=== PATIENT | male | born 1955 | race Caucasian/White ===

== ENCOUNTER 2020-06-10 15:43 | Observation (INO) | payer OTHER, MEDICARE ==
[~2020-06-10] VITALS: Ht 182.9 cm; Wt 90.4 kg
[2020-06-10 17:10] LABS: Calcium, Ionized (POC) 1.19 mmol/L (1.10-1.46); Chloride (POC) 106 mmol/L (98-108); Creatinine (POC) 3.3 mg/dL (0.8-1.3); Glucose (ISTAT POC) 104 mg/dL (70-99); Hemoglobin (POC) 11.2 g/dL (13.5-17.5); Potassium (POC) 4.2 mmol/L (3.5-5.5); Sodium (POC) 139 mmol/L (135-148); Total CO2 (POC) 23 mmol/L (21-32)
[2020-06-10 22:10] LABS: Source, Urine Clean Catch
[2020-06-10 22:13] LABS: Bilirubin, Urine Neg (Neg); Blood, Urine 3+ (Neg); Glucose Qualitative, Urine Neg (Neg); Ketones, Urine Neg (Neg); Leukocyte Esterase, Urine Neg (Neg); Nitrite, Urine Neg (Neg); Protein, Urine 1+ (Neg); Specific Gravity, Urine 1.015 (1.003-1.022); Urobilinogen, Urine NORM (Normal)
[2020-06-10] MEDS ORDERED: ZOCOR20 MG PO (22:21)
[2020-06-10] MEDS ORDERED: LOSA50 PO (22:21)
[2020-06-10] MEDS ORDERED: Elmiron100 MG PO (22:21)
[2020-06-10] MEDS ORDERED: ALFU10 PO (22:21)
[2020-06-10] MEDS ORDERED: MYRBETRIQ50 MG PO (22:22)
[2020-06-10] MEDS ORDERED: ELIQUIS5 MG PO (22:22)
[2020-06-10 22:23] LABS: Appearance, Urine Clear (Clear); Color, Urine Yellow (P-Yellow)
[2020-06-10] MEDS ORDERED: METO25 PO (22:23)
[2020-06-10 22:26] LABS: Bacteria Not Seen /hpf; Squamous Epithelial Cells Rare /hpf (Few); Uric Acid Crystals Mod /hpf; White Blood Cells, Urine Not Seen /hpf (0-5)
[2020-06-11 00:08] LABS: BASOPHILS ABSOLUTE AUTO 0.04 K/mm3 (0.00-0.23); BASOPHILS PERCENT AUTO 0 % (0-2); EOSINOPHILS ABSOLUTE AUTO 0.14 K/mm3 (0.00-0.68); EOSINOPHILS PERCENT AUTO 1 % (0-6); Hematocrit 32.1 % (37.0-53.0); Hemoglobin 10.9 g/dL (13.5-17.5); IMMATURE GRAN ABSOLUTE AUTO 0.09 K/mm3 (0.00-0.10); IMMATURE GRAN PERCENT AUTO 1 % (0-1); LYMPHOCYTES ABSOLUTE AUTO 1.77 K/mm3 (0.84-5.20); LYMPHOCYTES PERCENT AUTO 17 % (21-46); MONOCYTES ABSOLUTE AUTO 1.09 K/mm3 (0.16-1.47); MONOCYTES PERCENT AUTO 11 % (4-13); Mean Corpuscular Volume 88 fL (80-100); NEUTROPHILS PERCENT AUTO 70 % (41-73); Platelet Count 347 K/mm3 (150-400); RDW Coefficient Variation 12.2 % (11.7-14.2); Red Blood Cell Count 3.63 M/mm3 (4.30-5.90); White Blood Cell Count 10.43 K/mm3 (4.00-11.30)
[2020-06-11 00:25] LABS: Albumin, Blood 2.7 g/dL (3.4-5.0); Albumin/Globulin Ratio 0.8 (0.8-1.8); Bilirubin, Total 0.4 mg/dL (0.1-1.0); Bun/Creatinine Ratio 8.1 (12.0-20.0); Calcium, Blood 8.5 mg/dL (8.5-10.1); Creatinine, Blood 2.6 mg/dL (0.60-1.20); Globulin, Blood 3.6 g/dL (2.2-4.0); Potassium, Blood 3.9 mmol/L (3.5-5.5); Total Protein, Blood 6.3 g/dL (6.4-8.2)
[2020-06-11] MEDS ORDERED: Norco 10-325 T1 EACH PO (03:03)
[2020-06-11 03:14] LABS: Campylobacter Sp Not Detected (NOT DETECT); Cryptosporidium Not Detected (NOT DETECT); Cyclospora Cayetanensis Not Detected (NOT DETECT); E. Coli O157 Not Detected (NOT DETECT); Entamoeba Histolytica Not Detected (NOT DETECT); Enteroaggregative E. coli-EAEC Not Detected (NOT DETECT); Enteropathogenic E. coli-EPEC Not Detected (NOT DETECT); Enterotoxigenic E. coli-ETEC Not Detected (NOT DETECT); Giardia Lamblia Not Detected (NOT DETECT); Plesiomonas Shigelloides Not Detected (NOT DETECT); Salmonella Sp Not Detected (NOT DETECT); Shiga Toxin-prod E. coli-STEC Not Detected (NOT DETECT); Shigella/Enteroin E. coli-EIEC Not Detected (NOT DETECT); Vibrio Cholerae Not Detected (NOT DETECT); Vibrio Sp Not Detected (NOT DETECT); Yersinia Enterocolitica Not Detected (NOT DETECT)
[2020-06-11 03:15] LABS: Adenovirus F 40/41 Not Detected (NOT DETECT); Astrovirus Not Detected (NOT DETECT); Norovirus GI/GII Not Detected (NOT DETECT); Rotavirus A Not Detected (NOT DETECT); Sapovirus Not Detected (NOT DETECT)
[2020-06-11 06:01] LABS: Bun/Creatinine Ratio 8.1 (12.0-20.0); Calcium, Blood 8.6 mg/dL (8.5-10.1); Creatinine, Blood 2.46 mg/dL (0.60-1.20); Potassium, Blood 3.8 mmol/L (3.5-5.5)
--- NOTE | 2020-06-11 06:16 | NUR ---
SHIFT SUMMARY: AOX3, ADMITTED FOR FREQUENT DIARRHEA OF 3-4 TIMES A DAY FOR SEVERAL WEEKS NOW. WEAKNESS. INDEPENDANT IN THE ROOM. NO LIGHTHEADNESS. NO NAUSEA BUT DOES HAVE TENDERNESS IN ABDOMIN. POOR APPETITE. 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 GI PANEL ORDERED BUT CAME BACK NEGATIVE. IVF INFUSING TO INCREASE KIDNEY FUNCTIONS. OTHER THEN DIARREHA AND POOR APPEITITE HE IS DOING WELL. WILL CONTINUE TO MONITOR TILL DAYSHIFT ARRIVES.
--- NOTE | 2020-06-11 10:23 | NUR ---
ATTENDING PATHOLOGIST NOTIFIED THIS RN OF THE PATIENT'S RATE AND RHYTHM OF ST WITH PAC'S AT 160 BPM. WHILE ON VOCERA WITH THE ATTENDING PATHOLOGIST SHE SAID THE PATIENT CONVERTED TO SR AT [address] COLE NOTIFIED OF THIS AND HE STATED HE WANTS TO SEE THE RESULTS OF THE BARIUM SWALLOW BEFORE HE MAKES ANY ORDERS.
--- NOTE | 2020-06-11 16:49 | NUR ---
PATIENT IS ALERT AND ORIENTED AND COOPERATIVE WITH CARE. HE STATES HE HAS HAD [address] COLE STARTED THE PATIENT ON CELIAC DIET (GLUTEN FREE) AND CREON TIDM. NS IS RUNNING AT 150/HR. PATIENT IS INDEPENDENT IN HIS ROOM. HE IS . WILL CONTINUE TO MONITOR
[2020-06-12 05:01] LABS: BASOPHILS ABSOLUTE AUTO 0.02 K/mm3 (0.00-0.23); BASOPHILS PERCENT AUTO 0 % (0-2); EOSINOPHILS ABSOLUTE AUTO 0.12 K/mm3 (0.00-0.68); EOSINOPHILS PERCENT AUTO 1 % (0-6); Hematocrit 30.8 % (37.0-53.0); Hemoglobin 10.4 g/dL (13.5-17.5); IMMATURE GRAN ABSOLUTE AUTO 0.05 K/mm3 (0.00-0.10); IMMATURE GRAN PERCENT AUTO 1 % (0-1); LYMPHOCYTES ABSOLUTE AUTO 1.79 K/mm3 (0.84-5.20); LYMPHOCYTES PERCENT AUTO 18 % (21-46); MONOCYTES ABSOLUTE AUTO 1.14 K/mm3 (0.16-1.47); MONOCYTES PERCENT AUTO 12 % (4-13); Mean Corpuscular HGB 29.9 pg (26.0-34.0); Mean Corpuscular HGB Conc 33.8 g/dL (31.5-36.5); Mean Corpuscular Volume 89 fL (80-100); Mean Platelet Volume 9.3 fL (9.1-12.4); NEUTROPHILS ABSOLUTE AUTO 6.61 K/mm3 (1.96-9.15); NEUTROPHILS PERCENT AUTO 68 % (41-73); Platelet Count 327 K/mm3 (150-400); RDW Coefficient Variation 12.6 % (11.7-14.2); RDW Standard Deviation 41.1 fL (35.1-46.3); Red Blood Cell Count 3.48 M/mm3 (4.30-5.90); White Blood Cell Count 9.73 K/mm3 (4.00-11.30)
[2020-06-12 05:23] LABS: Bun/Creatinine Ratio 8.5 (12.0-20.0); Calcium, Blood 8.2 mg/dL (8.5-10.1); Creatinine, Blood 1.65 mg/dL (0.60-1.20); Potassium, Blood 3.8 mmol/L (3.5-5.5)
--- NOTE | 2020-06-12 05:26 | NUR ---
SHIFT SUMMARY S/P DAMIAN, A/O X4, VSS, TOLERATING PO, MULTIPLE LOOSE BM'S TODAY, VOIDING SMALL AMOUNTS EACH TIME, DENIES PAIN T/O SHIFT, INDEPENDENT IN ROOM. REPORTS METOPROLOL ORDERED IS MORE THAN HIS HOME ORDER, WILL DISCUSS W/ DAY RN TO BE ADDRESSED BY PROVIDER. NO ACUTE EVENTS THIS SHIFT. CALL LIGHT IN REACH, WILL CONTINUE TO MONITOR AND REPORT TO ONCOMING DAY RN.
--- NOTE | 2020-06-12 12:23 | NUR ---
Patient is sitting up in bed and alert. 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 He also shares about his family. I provide therapeutic listening and companionship. Patient responds well and shows signs of an elevated mood.
--- NOTE | 2020-06-12 17:36 | NUR ---
SHIFT SUMMARY PT RESTING QUIETLY AT START OF SHIFT. SL AT THAT TIME. PT UP TO BTHRM INDEPENDENTLY WITH LOOSE STOOLS. PER REPORT, PT STARTED ON CELIAC, GLUTEN FREE DIET. DR COLE IN TO SEE PT THIS AM, DICUSSING PLAN OF CARE. MEDICATIONS ADJUSTED. PT HOPING TO GO HOME TODAY. PT TO STAY ONE MORE DAY. CREON INCREASED; SEE EMAR. TO RE-EVALUATE PT TOMORROW AND D/C TO HOME. IVF'S RESTARTED TODAY X1 LITER ONLY; THEN SL. PT IS A&O, PLEASANT AND CO-OP WITH CARE. CALL LT IN REACH.
[2020-06-13 06:06] LABS: Bun/Creatinine Ratio 6.3 (12.0-20.0); Calcium, Blood 8.3 mg/dL (8.5-10.1); Creatinine, Blood 1.42 mg/dL (0.60-1.20); Potassium, Blood 3.9 mmol/L (3.5-5.5)
--- NOTE | 2020-06-13 06:39 | NUR ---
HOPING TO GO HOME TODAY. NO CHANGES FROM PREVIOUS SHIFT. ALONSO JUST THINKS HE CAN RECOVER WELL AT HOME. MINIMAL TOLERABLE PAIN/NAUSEA OVERNIGHT. STILL HAVING LOOSE STOOLS
[2020-06-13] MEDS ORDERED: Acetaminophen325 M1 PO (11:00)
[2020-06-13] MEDS ORDERED: CREON DR 24,001 EACH PO (11:01)
--- NOTE | 2020-06-13 13:48 | NUR ---
DISCHARGE SUMMARY PATIENT DISCHARGED TO HOME. PATIENT ALERT AND ORIENTED THIS SHIFT. PATIENT INDEPENDENT IN THE ROOM. PATIENT STATES BMs STILL MOSTLY LIQUID, WITH SOME SOLID FORMED STOOL. PATIENT TOLERATED BREAKFAST MODERATELY WELL. PATIENT STATES UPSET STOMACH AND DIDN'T WANT LUNCH. IV REMOVED PRIOR TO DISCHARGE. PATIENT BELONGINGS WITH PATIENT UPON DISCHARGE. DISCHARGE AND MEDICATION EXPLAINED TO PATIENT. PATIENT DENIES QUESTIONS AT THIS TIME. PATIENT TO VEHICLE VIA WHEELCHAIR. TO PROVIDE TRANSPORTATION HOME.
== END 2020-06-13 13:45 | disposition home or self-care (01) ==
LOC: ER 15:43 → MEDS 06-11 01:56 → ERHOLD 06-11 01:56 → MEDS 06-11 01:56 → ERHOLD 06-11 02:53 → MEDS 06-11 02:53
PROVIDERS: Emergency Medicine; Internal Medicine; ADMIT Internal Medicine
DX: N17.9 Acute kidney failure, unspecified (principal); E86.0 Dehydration; K52.89 Other specified noninfective gastroenteritis and colitis; I48.0 Paroxysmal atrial fibrillation; N40.0 Benign prostatic hyperplasia without lower urinary tract symptoms; E78.5 Hyperlipidemia, unspecified; I10 Essential (primary) hypertension; I25.10 Atherosclerotic heart disease of native coronary artery without angina pectoris; Z79.01 Long term (current) use of anticoagulants; Z95.1 Presence of aortocoronary bypass graft
CPT/HCPCS: 0097U; 36415; 76770; 80047; 80048; 80053; 81001; 82550; 85014; 85025; 99285; A9270; A9270-GY; J7030; J7120

== ENCOUNTER 2020-09-11 15:28 | Inpatient (IN) | payer OTHER ==
[~2020-09-11] VITALS: Ht 182.9 cm; Wt 74.3 kg
[~2020-09-11 15:28] MED LIST: ALFU10 PO; Acetaminophen325 M1 PO; CREON DR 24,001 EACH PO; Cipro500 MG PO; DICLOFENAC SOD100 G1 TOP; ELIQUIS5 MG PO; Elmiron100 MG PO; LIDOCAINE1 EACH TOP; LOSA25; LOSA50 PO; LOSARTAN POTAS100 M1 PO; METO25 PO; MYRBETRIQ50 MG PO; Norco 10-325 T1 EACH PO; Simvastatin20 MG PO; ZOCOR20 MG PO
[2020-09-11 16:34] LABS: BASOPHILS ABSOLUTE AUTO 0.01 K/mm3 (0.00-0.23); BASOPHILS PERCENT AUTO 0 % (0-2); EOSINOPHILS ABSOLUTE AUTO 0.01 K/mm3 (0.00-0.68); EOSINOPHILS PERCENT AUTO 0 % (0-6); Hematocrit 34.4 % (37.0-53.0); Hemoglobin 11.4 g/dL (13.5-17.5); IMMATURE GRAN ABSOLUTE AUTO 0.07 K/mm3 (0.00-0.10); IMMATURE GRAN PERCENT AUTO 1 % (0-1); LYMPHOCYTES ABSOLUTE AUTO 0.74 K/mm3 (0.84-5.20); LYMPHOCYTES PERCENT AUTO 6 % (21-46); MONOCYTES ABSOLUTE AUTO 0.61 K/mm3 (0.16-1.47); MONOCYTES PERCENT AUTO 5 % (4-13); Mean Corpuscular HGB 27.2 pg (26.0-34.0); Mean Corpuscular HGB Conc 33.1 g/dL (31.5-36.5); Mean Corpuscular Volume 82 fL (80-100); Mean Platelet Volume 8.5 fL (9.1-12.4); NEUTROPHILS ABSOLUTE AUTO 10.06 K/mm3 (1.96-9.15); NEUTROPHILS PERCENT AUTO 88 % (41-73); Platelet Count 379 K/mm3 (150-400); RDW Standard Deviation 41.3 fL (35.1-46.3); Red Blood Cell Count 4.19 M/mm3 (4.30-5.90)
[2020-09-11 16:55] LABS: Alanine Aminotransfer (ALT/SGP 41 U/L (12-78); Albumin, Blood 1.9 g/dL (3.4-5.0); Albumin/Globulin Ratio 0.4 (0.8-1.8); Alk Phos 141 U/L (50-136); Anion Gap 3 mmol/L (6-16); Aspartate Aminotrans (AST/SGOT 19 U/L (12-37); Bilirubin, Total 0.6 mg/dL (0.1-1.0); Blood Urea Nitrogen 13 mg/dL (8-24); Bun/Creatinine Ratio 18.5 (12.0-20.0); CO2, Blood 25 mmol/L (21-32); Calcium, Blood 8.3 mg/dL (8.5-10.1); Chloride, Blood 104 mmol/L (98-108); Globulin, Blood 4.4 g/dL (2.2-4.0); Glomerular Filtration Rate >60 (60-); Glucose, Blood 231 mg/dL (70-99); Potassium, Blood 4.2 mmol/L (3.5-5.5); Sodium, Blood 132 mmol/L (136-145); Total Protein, Blood 6.3 g/dL (6.4-8.2)
[2020-09-11 16:57] LABS: International Normalized Ratio 1.2; Prothrombin Time Results 12.8 Sec (9.7-11.5)
[2020-09-11] MEDS ORDERED: PRED5 PO (18:15)
[2020-09-11] MEDS ORDERED: Elmiron100 MG (18:16)
[2020-09-11] MEDS ORDERED: DICY20 PO (19:20)
[2020-09-11 21:12] LABS: Percent Saturation 19.5 % (20.0-50.0)
[2020-09-11] MEDS ORDERED: Norco 5-325 Ta1 EACH PO (23:06)
[2020-09-11] MEDS ORDERED: ONDA4 PO (23:07)
[2020-09-12 00:03] LABS: Campylobacter Sp Not Detected (NOT DETECT); Plesiomonas Shigelloides Not Detected (NOT DETECT); Salmonella Sp Not Detected (NOT DETECT); Vibrio Cholerae Not Detected (NOT DETECT); Vibrio Sp Not Detected (NOT DETECT); Yersinia Enterocolitica Not Detected (NOT DETECT)
[2020-09-12 00:04] LABS: Adenovirus F 40/41 Not Detected (NOT DETECT); Astrovirus Not Detected (NOT DETECT); Cryptosporidium Not Detected (NOT DETECT); Cyclospora Cayetanensis Not Detected (NOT DETECT); E. Coli O157 Not Detected (NOT DETECT); Entamoeba Histolytica Not Detected (NOT DETECT); Enteroaggregative E. coli-EAEC Not Detected (NOT DETECT); Enteropathogenic E. coli-EPEC Not Detected (NOT DETECT); Enterotoxigenic E. coli-ETEC Not Detected (NOT DETECT); Giardia Lamblia Not Detected (NOT DETECT); Norovirus GI/GII Not Detected (NOT DETECT); Rotavirus A Not Detected (NOT DETECT); Sapovirus Not Detected (NOT DETECT); Shiga Toxin-prod E. coli-STEC Not Detected (NOT DETECT); Shigella/Enteroin E. coli-EIEC Not Detected (NOT DETECT)
[2020-09-12 00:20] LABS: Source, Urine Clean Catch
[2020-09-12 00:21] LABS: Bilirubin, Urine Neg (Neg); Blood, Urine 1+ (Neg); Glucose Qualitative, Urine Neg (Neg); Ketones, Urine Neg (Neg); Leukocyte Esterase, Urine 1+ (Neg); Nitrite, Urine Neg (Neg); Protein, Urine 1+ (Neg); Specific Gravity, Urine 1.015 (1.003-1.022); Urobilinogen, Urine NORM (Normal); pH, Urine 6.5 (5.0-8.0)
[2020-09-12 00:26] LABS: Appearance, Urine Clear (Clear); Color, Urine Yellow (P-Yellow)
[2020-09-12 00:27] LABS: Amorphous Light (0-Heavy); Bacteria Rare /hpf; Squamous Epithelial Cells Rare /hpf (Few); White Blood Cells, Urine 0-2 /hpf (0-5)
[2020-09-12 05:04] LABS: BASOPHILS ABSOLUTE AUTO 0.02 K/mm3 (0.00-0.23); BASOPHILS PERCENT AUTO 0 % (0-2); EOSINOPHILS ABSOLUTE AUTO 0.04 K/mm3 (0.00-0.68); EOSINOPHILS PERCENT AUTO 0 % (0-6); Hematocrit 36.3 % (37.0-53.0); Hemoglobin 11.8 g/dL (13.5-17.5); IMMATURE GRAN ABSOLUTE AUTO 0.07 K/mm3 (0.00-0.10); IMMATURE GRAN PERCENT AUTO 1 % (0-1); LYMPHOCYTES ABSOLUTE AUTO 2.28 K/mm3 (0.84-5.20); LYMPHOCYTES PERCENT AUTO 16 % (21-46); MONOCYTES ABSOLUTE AUTO 1.59 K/mm3 (0.16-1.47); MONOCYTES PERCENT AUTO 11 % (4-13); Mean Corpuscular HGB 26.9 pg (26.0-34.0); Mean Corpuscular HGB Conc 32.5 g/dL (31.5-36.5); Mean Corpuscular Volume 83 fL (80-100); Mean Platelet Volume 8.4 fL (9.1-12.4); NEUTROPHILS ABSOLUTE AUTO 10.29 K/mm3 (1.96-9.15); NEUTROPHILS PERCENT AUTO 72 % (41-73); Platelet Count 424 K/mm3 (150-400); RDW Coefficient Variation 14.3 % (11.7-14.2); RDW Standard Deviation 43.2 fL (35.1-46.3); Red Blood Cell Count 4.38 M/mm3 (4.30-5.90); White Blood Cell Count 14.29 K/mm3 (4.00-11.30)
[2020-09-12 05:28] LABS: Anion Gap 6 mmol/L (6-16); Blood Urea Nitrogen 9 mg/dL (8-24); Bun/Creatinine Ratio 10.8 (12.0-20.0); CO2, Blood 26 mmol/L (21-32); Chloride, Blood 103 mmol/L (98-108); Creatinine, Blood 0.84 mg/dL (0.60-1.20); Glomerular Filtration Rate >60 (60-); Glucose, Blood 146 mg/dL (70-99); Potassium, Blood 4.3 mmol/L (3.5-5.5); Sodium, Blood 135 mmol/L (136-145)
--- NOTE | 2020-09-12 06:34 | NUR ---
SHIFT SUMMARY PATIENT ALERT AND ORIENTED. IS EXPERIENCING ABDOMINAL PAIN THAT IS EXACERBATED BY HAVING BOWEL MOVEMENTS. NO COMPLAINTS OF SHORTNESS OF BREATH. IV PATENT AND INFUSING. BED IN LOWEST POSITION WITH WHEELS LOCKED. CALL LIGHT WITHIN REACH. REPORT GIVEN TO ONCOMING RN.
--- NOTE | 2020-09-12 17:50 | NUR ---
SHIFT SUMMARY. A&OX4, INDEPENDENT TO THE BATHROOM. STILL WITH POOR PO INTAKE, ON CLEAR LIQUIDS. CONTINUES WITH FREQUENT LIQUIDS STOOLS, ABD CRAMPING/PAIN ALONG LOWER QUADRANTS, AND NAUSEA. SYMPTOMS MANAGED WITH CURRENT ORDERS, ALTHOUGH PT DOES REPORT HE IS "MISERABLE FROM FEEING THIS WAY FOR SO LONG." PT OFFERED SHOWERED TODAY, PT REPORTED NOT FEELING WELL ENOUGH TO TOLERATE. IN TO VISIT THIS AFTERNOON. NO OTHER CHANGES OR CONCERNS.
[2020-09-13 05:10] LABS: BASOPHILS ABSOLUTE AUTO 0.01 K/mm3 (0.00-0.23); BASOPHILS PERCENT AUTO 0 % (0-2); EOSINOPHILS ABSOLUTE AUTO 0.08 K/mm3 (0.00-0.68); EOSINOPHILS PERCENT AUTO 1 % (0-6); Hematocrit 32.1 % (37.0-53.0); Hemoglobin 10.4 g/dL (13.5-17.5); IMMATURE GRAN ABSOLUTE AUTO 0.06 K/mm3 (0.00-0.10); IMMATURE GRAN PERCENT AUTO 1 % (0-1); LYMPHOCYTES ABSOLUTE AUTO 2.46 K/mm3 (0.84-5.20); LYMPHOCYTES PERCENT AUTO 23 % (21-46); MONOCYTES ABSOLUTE AUTO 1.14 K/mm3 (0.16-1.47); MONOCYTES PERCENT AUTO 11 % (4-13); Mean Corpuscular HGB 27.2 pg (26.0-34.0); Mean Corpuscular HGB Conc 32.4 g/dL (31.5-36.5); Mean Corpuscular Volume 84 fL (80-100); Mean Platelet Volume 8.5 fL (9.1-12.4); NEUTROPHILS ABSOLUTE AUTO 6.75 K/mm3 (1.96-9.15); NEUTROPHILS PERCENT AUTO 64 % (41-73); Platelet Count 365 K/mm3 (150-400); RDW Coefficient Variation 14.4 % (11.7-14.2); RDW Standard Deviation 43.7 fL (35.1-46.3); Red Blood Cell Count 3.83 M/mm3 (4.30-5.90)
--- NOTE | 2020-09-13 05:43 | NUR ---
SHIFT SUMMARY PATIENT ALERT AND ORIENTED. MEDICATED PER EMAR FOR STOMACH PAIN AND NAUSEA. NO COMPLAINTS OF SHORTNESS OF BREATH. NO ACUTE ISSUES NOTED. IV PATENT AND INFUSING. BED IN LOWEST POSITION WITH WHEELS LOCKED. CALL LIGHT WITHIN REACH. REPORT GIVEN TO ONCOMING RN.
[2020-09-13 05:53] LABS: Alanine Aminotransfer (ALT/SGP 27 U/L (12-78); Albumin, Blood 1.8 g/dL (3.4-5.0); Albumin/Globulin Ratio 0.5 (0.8-1.8); Alk Phos 107 U/L (50-136); Anion Gap 5 mmol/L (6-16); Aspartate Aminotrans (AST/SGOT 7 U/L (12-37); Bilirubin, Total 0.4 mg/dL (0.1-1.0); Blood Urea Nitrogen 5 mg/dL (8-24); Bun/Creatinine Ratio 6.8 (12.0-20.0); CO2, Blood 26 mmol/L (21-32); Calcium, Blood 8.7 mg/dL (8.5-10.1); Chloride, Blood 104 mmol/L (98-108); Creatinine, Blood 0.74 mg/dL (0.60-1.20); Globulin, Blood 3.8 g/dL (2.2-4.0); Glomerular Filtration Rate >60 (60-); Glucose, Blood 148 mg/dL (70-99); Phosphorus, Blood 2.4 mg/dL (2.5-4.9); Potassium, Blood 3.7 mmol/L (3.5-5.5); Sodium, Blood 135 mmol/L (136-145); Thyroid Stimulating Hormone 0.619 uIU/mL (0.360-4.800); Total Protein, Blood 5.6 g/dL (6.4-8.2)
--- NOTE | 2020-09-13 17:38 | NUR ---
SHIFT SUMMARY. A&OX4, INDEPENDENT TO BATHROOM. PT CONTINUES WITH LIQUID STOOLS, PT REPORTS ONE STOOL WITH BLOOD TINGED. PT ALSO CONTINUES WITH CONSTANT NAUSEA, ABD PAIN, THAT INTERMITTENTLY EXACERBATES, EXACERBATION OF SYMPTOMS DECREASE WITH CURRENT PRN ORDERS, ESPECIALLY ZOFRAN. PT REPORTED INCREASED ABD PAIN WITH FIRST DOSE OF REGLAN, ALTHOUGH FIRST DOSE OF IV STEROIDS WERE GIVEN AT THAT TIME. DR. HSIEH CONSULTED TODAY, CHANGED ORAL STEROID TO IV, D/C'D IV ABX. AT BEDSIDE THIS AFTERNOON. PT CONTINUES WITH POOR PO INTAKE, CONTINUES WITH MAINTENCE FLUIDS. NO OTHER CHANGES OR CONCERNS.
--- NOTE | 2020-09-14 06:47 | NUR ---
SHIFT SUMMARY PATIENT ALERT AND ORIENTED. MEDICATED PER EMAR FOR NAUSEA. NO COMPLAINTS OF SHORTNESS OF BREATH. NO ACUTE ISSUES NOTED OVERNIGHT. IV PATENT AND INFUSING. BED IN LOWEST POSITION WITH WHEELS LOCKED. CALL LIGHT WITHIN REACH. REPORT GIVEN TO ONCOMING RN.
[2020-09-14 08:31] LABS: BASOPHILS ABSOLUTE AUTO 0.02 K/mm3 (0.00-0.23); BASOPHILS PERCENT AUTO 0 % (0-2); EOSINOPHILS PERCENT AUTO 0 % (0-6); Hematocrit 35.1 % (37.0-53.0); Hemoglobin 11.2 g/dL (13.5-17.5); IMMATURE GRAN ABSOLUTE AUTO 0.07 K/mm3 (0.00-0.10); IMMATURE GRAN PERCENT AUTO 1 % (0-1); LYMPHOCYTES ABSOLUTE AUTO 1.12 K/mm3 (0.84-5.20); LYMPHOCYTES PERCENT AUTO 11 % (21-46); MONOCYTES ABSOLUTE AUTO 0.36 K/mm3 (0.16-1.47); MONOCYTES PERCENT AUTO 4 % (4-13); Mean Corpuscular HGB 27.1 pg (26.0-34.0); Mean Corpuscular HGB Conc 31.9 g/dL (31.5-36.5); Mean Corpuscular Volume 85 fL (80-100); Mean Platelet Volume 8.8 fL (9.1-12.4); NEUTROPHILS ABSOLUTE AUTO 8.23 K/mm3 (1.96-9.15); NEUTROPHILS PERCENT AUTO 84 % (41-73); Platelet Count 383 K/mm3 (150-400); RDW Coefficient Variation 14.3 % (11.7-14.2); Red Blood Cell Count 4.14 M/mm3 (4.30-5.90)
[2020-09-14 08:44] LABS: Alanine Aminotransfer (ALT/SGP 22 U/L (12-78); Albumin, Blood 1.8 g/dL (3.4-5.0); Albumin/Globulin Ratio 0.4 (0.8-1.8); Alk Phos 102 U/L (50-136); Anion Gap 3 mmol/L (6-16); Aspartate Aminotrans (AST/SGOT 4 U/L (12-37); Bilirubin, Total 0.4 mg/dL (0.1-1.0); Blood Urea Nitrogen 4 mg/dL (8-24); Bun/Creatinine Ratio 5.2 (12.0-20.0); CO2, Blood 28 mmol/L (21-32); Calcium, Blood 8.9 mg/dL (8.5-10.1); Chloride, Blood 106 mmol/L (98-108); Creatinine, Blood 0.76 mg/dL (0.60-1.20); Glomerular Filtration Rate >60 (60-); Glucose, Blood 195 mg/dL (70-99); Magnesium, Blood 2.1 mg/dL (1.6-2.4); Phosphorus, Blood 2.9 mg/dL (2.5-4.9); Potassium, Blood 4.5 mmol/L (3.5-5.5); Sodium, Blood 137 mmol/L (136-145); Total Protein, Blood 5.8 g/dL (6.4-8.2)
--- NOTE | 2020-09-14 18:10 | NUR ---
SHIFT SUMMARY PT INDEPENDENT TO BATHROOM. REPORTS 3 DIARRHEAS SINCE MIDNIGHT WHICH IS SIGNIFICANT IMPROVEMENT OVER BEFORE. DOES CONTINUE TO HAVE NAUSEA THAT RETURNS WITHIN 2-3 HOURS AFTER ZOFRAN GIVEN. EATING SMALL AMOUNT OF CLEAR LIQUID MEALS. ADVANCED TO FULL LIQUID FOR SUPPER.
[2020-09-15 06:34] LABS: BASOPHILS ABSOLUTE AUTO 0.02 K/mm3 (0.00-0.23); BASOPHILS PERCENT AUTO 0 % (0-2); EOSINOPHILS PERCENT AUTO 0 % (0-6); Hematocrit 36.8 % (37.0-53.0); Hemoglobin 11.8 g/dL (13.5-17.5); IMMATURE GRAN PERCENT AUTO 1 % (0-1); LYMPHOCYTES PERCENT AUTO 13 % (21-46); MONOCYTES ABSOLUTE AUTO 0.43 K/mm3 (0.16-1.47); MONOCYTES PERCENT AUTO 5 % (4-13); Mean Corpuscular HGB 27.1 pg (26.0-34.0); Mean Corpuscular HGB Conc 32.1 g/dL (31.5-36.5); Mean Corpuscular Volume 84 fL (80-100); Mean Platelet Volume 8.4 fL (9.1-12.4); NEUTROPHILS ABSOLUTE AUTO 7.75 K/mm3 (1.96-9.15); NEUTROPHILS PERCENT AUTO 82 % (41-73); Platelet Count 442 K/mm3 (150-400); RDW Coefficient Variation 14.3 % (11.7-14.2); Red Blood Cell Count 4.36 M/mm3 (4.30-5.90)
--- NOTE | 2020-09-15 06:48 | NUR ---
SEE PAPER PROGRESS NOTE FOR SHIFT SUMMARY
[2020-09-15 07:09] LABS: HBSAG SCREEN Negative (Negative); HEP B CORE AB, TOT Negative (Negative)
[2020-09-15 07:32] LABS: Alanine Aminotransfer (ALT/SGP 21 U/L (12-78); Albumin, Blood 1.8 g/dL (3.4-5.0); Albumin/Globulin Ratio 0.5 (0.8-1.8); Alk Phos 91 U/L (50-136); Anion Gap 5 mmol/L (6-16); Aspartate Aminotrans (AST/SGOT 7 U/L (12-37); Bilirubin, Total 0.3 mg/dL (0.1-1.0); Blood Urea Nitrogen 7 mg/dL (8-24); Bun/Creatinine Ratio 8.4 (12.0-20.0); CO2, Blood 26 mmol/L (21-32); Calcium, Blood 8.8 mg/dL (8.5-10.1); Chloride, Blood 106 mmol/L (98-108); Creatinine, Blood 0.83 mg/dL (0.60-1.20); Globulin, Blood 3.8 g/dL (2.2-4.0); Glomerular Filtration Rate >60 (60-); Glucose, Blood 225 mg/dL (70-99); Magnesium, Blood 2.1 mg/dL (1.6-2.4); Phosphorus, Blood 2.9 mg/dL (2.5-4.9); Potassium, Blood 4.2 mmol/L (3.5-5.5); Sodium, Blood 137 mmol/L (136-145); Thyroid Stimulating Hormone 0.298 uIU/mL (0.360-4.800); Total Protein, Blood 5.6 g/dL (6.4-8.2)
[2020-09-15] MEDS ORDERED: METO10 PO (11:52)
[2020-09-15] MEDS ORDERED: Acetaminophen325 M1 PO (11:52)
[2020-09-15] MEDS ORDERED: ONDA4ODT MM (11:53)
--- NOTE | 2020-09-15 14:05 | NUR ---
DISCHARGE INSTRUCTIONS COMPLETED AND DISCUSSED WITH PT EXPRESSING UNDERSTANDING. SCRIPTS FAXED TO [facility]. TO [facility] VIA W/C WITH .
[2020-09-18 12:10] LABS: QUANTIFERON MITOGEN VALUE >10.00 IU/mL (.); QUANTIFERON NIL VALUE 0.02 IU/mL (.); QUANTIFERON TB1 AG VALUE 0.03 IU/mL (.); QUANTIFERON TB2 AG VALUE 0.03 IU/mL (.); QUANTIFERON-TB GOLD PLUS Negative (Negative)
== END 2020-09-15 13:07 | disposition home or self-care (01) | DRG 392 ==
LOC: ER 15:28 → MEDS 15:29
PROVIDERS: Emergency Medicine; Family Medicine; Internal Medicine Gastroenterology; ADMIT Internal Medicine
DX: K58.0 Irritable bowel syndrome with diarrhea (principal); E44.0 Moderate protein-calorie malnutrition; E87.1 Hypo-osmolality and hyponatremia; K58.9 Irritable bowel syndrome, unspecified; E86.0 Dehydration; M54.5 Low back pain; I48.0 Paroxysmal atrial fibrillation; I10 Essential (primary) hypertension; G89.29 Other chronic pain; E78.5 Hyperlipidemia, unspecified; R00.0 Tachycardia, unspecified; I95.9 Hypotension, unspecified; E88.09 Other disorders of plasma-protein metabolism, not elsewhere classified; D50.9 Iron deficiency anemia, unspecified; I25.10 Atherosclerotic heart disease of native coronary artery without angina pectoris; N40.0 Benign prostatic hyperplasia without lower urinary tract symptoms; Z68.20 Body mass index [BMI] 20.0-20.9, adult; Z90.49 Acquired absence of other specified parts of digestive tract; Z79.01 Long term (current) use of anticoagulants; Z79.899 Other long term (current) drug therapy; Z98.890 Other specified postprocedural states
CPT/HCPCS: 0097U; 36415; 74177; 80048; 80053; 81001; 82306; 82607; 82728; 82746; 83540; 83550; 83605; 83690; 83735; 83880; 83993; 84100; 84145; 84443; 85025; 85610; 85651; 86140; 86317; 86480; 86704; 87177; 87209; 87340; 96365-59; 96366; 96368; 96375; 97110; 97161; 97166; 97530; 99285-25; A9270; G0378; J0744; J1720; J2405; J2550; J2765; J3480; J7512; Q9967

== ENCOUNTER 2022-12-15 11:22 | Day surgery (SDC) | payer OTHER ==
[~2022-12-15] VITALS: Ht 182.9 cm; Wt 78.6 kg
[~2022-12-15 11:22] MED LIST changes: +DICY20 PO; +Elmiron100 MG; +METO10 PO; +Norco 5-325 Ta1 EACH PO; +ONDA4 PO; +ONDA4ODT MM; +PRED5 PO
[2022-12-15] MEDS ORDERED: ZOLP10 PO (11:50)
--- NOTE | 2022-12-15 11:55 | NUR ---
12/15/22 1155 Nica Vital TETRACAINE ADMINISTERED TO THE R EYE AT 1142, PLEDGET PLACED AT 1143, PT MINNIE WELL
[2022-12-15 12:39] VITALS: BP 132/77
--- NOTE | 2022-12-15 12:40 | NUR ---
12/15/22 1240 Nica Vital IV REMOVED, CANNULA INTACT PT MINNIE WELL. PT DENIES PAIN AND NAUSEA
== END 2022-12-15 12:53 | disposition home or self-care (01) ==
LOC: ORSCSDS 11:22
PROVIDERS: Ophthalmology
PROC: 08RJ3JZ Replacement of Right Lens with Synthetic Substitute, Percutaneous Approach (ICD-10-PCS; principal; 2022-12-15 12:30)
DX: H25.13 Age-related nuclear cataract, bilateral (principal); H52.203 Unspecified astigmatism, bilateral; Z79.899 Other long term (current) drug therapy; Z79.01 Long term (current) use of anticoagulants
CPT/HCPCS: J2250; J3010; J3301; J7040; V2632

== ENCOUNTER 2022-12-20 14:05 | Day surgery (SDC) | payer OTHER ==
[~2022-12-20] VITALS: Ht 182.9 cm; Wt 79.3 kg
[~2022-12-20 14:05] MED LIST changes: +ZOLP10 PO
--- NOTE | 2022-12-20 14:22 | NUR ---
12/20/22 1422 Denzel Morales CALL LIGHT WITHIN REACH. TETRACAINE IN LEFT EYE AT 1420 AND PLEDGETT IN AT 1422
[2022-12-20 15:14] VITALS: BP 148/74
--- NOTE | 2022-12-20 15:22 | NUR ---
12/20/22 1522 KAEL GARCIA IV REMOVED W/O DIFF. MINNIE WELL. CANNULA INTACT.
== END 2022-12-20 15:28 | disposition home or self-care (01) ==
LOC: ORSCSDS 14:05
PROVIDERS: Ophthalmology
PROC: 08RK3JZ Replacement of Left Lens with Synthetic Substitute, Percutaneous Approach (ICD-10-PCS; principal; 2022-12-20 15:30)
DX: H25.12 Age-related nuclear cataract, left eye (principal); H52.202 Unspecified astigmatism, left eye; Z96.1 Presence of intraocular lens; I10 Essential (primary) hypertension; Z79.899 Other long term (current) drug therapy
CPT/HCPCS: J2250; J3010; J3301; J7040; V2632

== ENCOUNTER 2024-01-23 09:37 | Day surgery (SDC) | payer MEDICARE, OTHER ==
[~2024-01-23] VITALS: Ht 177.8 cm; Wt 78.8 kg
[2024-01-23] VITALS (13 sets, daily range): BP systolic 115–135; BP diastolic 60–85
[~2024-01-23 09:37] MED LIST changes: +DODEX1000 MCG/1 IM; +IMURAN50 MG PO; +MAGNESIUM OXID500 MG PO; +VITAMIN D310 MC4 PO; +Vitamin B Comple1 EA PO
[2024-01-23] MEDS ORDERED: Chlorhexidine Mouth Care 15 ML UDC MT SCH (10:45)
[2024-01-23] MEDS ORDERED: CeFAZolin Sodium 2,000 MG in NS 100 ML IV SCH ×2 (10:45→21:30)
[2024-01-23] MEDS ORDERED: OxyCODONE HCL 10 MG TABCR PO SCH (10:45)
[2024-01-23] MEDS ORDERED: Acetaminophen 500 MG Tab PO SCH ×2 (10:45→16:00)
[2024-01-23] MEDS ORDERED: Lactated Ringer's 1,000 ML IV SCH ×2 (10:45→13:10)
[2024-01-23] MEDS ORDERED: Tranexamic Acid 1,000 MG in NS 100 ML IV SCH (10:45)
[2024-01-23] MEDS ORDERED: Ropivacaine 0.5% HCl/Pf 123.125 MG,EPINEPHrine HCL 0.25 MG,Ketorolac Tromethamine 15 MG... INFIL SCH (11:15)
--- NOTE | 2024-01-23 12:02 | NUR ---
Ambulatory in Day Surgery. History, Chart, Medications and Allergies reviewed before start of procedure. Lungs clear T/O to Auscultation. Patient confirms NPO status and agrees with scheduled surgery. Pre-Op teaching done. Pt verbalizes understanding. PT BELONGINGS PLACED UNDERNEATH GURNEY FOR SAFEKEEPING.
[2024-01-23] MEDS ORDERED: Ondansetron 4 MG SoluTab MM PRN (13:00)
[2024-01-23] MEDS ORDERED: Dicyclomine HCl 20 MG Tab PO PRN (13:05)
[2024-01-23] MEDS ORDERED: OxyCODONE HCL 5 MG TAB PO PRN ×2 (13:05)
[2024-01-23] MEDS ORDERED: FLU VACC TS2024-25(6MOS UP)/PF 45 MCG/0.5 ML SYRINGE IM SCH (13:10)
[2024-01-23] MEDS ORDERED: HYDROmorphone HCl/Pf 1MG SYR IV PRN (13:10)
[2024-01-23] MEDS ORDERED: Metoclopramide HCl 5MG / ML 2ML Vial IV PRN (13:10)
[2024-01-23] MEDS ORDERED: DiphenhydrAMINE HCL 25 MG Cap PO PRN (13:10)
[2024-01-23] MEDS ORDERED: Magnesium Hydroxide Conc 10 ML UDC PO PRN (13:10)
[2024-01-23] MEDS ORDERED: Ondansetron HCl 2 MG / ML 2ML Vial IV PRN (13:10)
[2024-01-23] MEDS ORDERED: FentaNYL Citrate 50 MCG/ML 2 ML Injection ONE ×2 (13:11→14:45)
[2024-01-23] MEDS ORDERED: Promethazine HCl 25 MG Tab PO PRN (13:15)
[2024-01-23] MEDS ORDERED: Bisacodyl 10 MG Supp PR PRN (13:15)
[2024-01-23] MEDS ORDERED: ePHEDrine Sulfate 50 MG/ML 1ML Injection ONE (13:36)
[2024-01-23] MEDS ORDERED: propofoL 20 ML IV ONE (14:40)
[2024-01-23] MEDS ORDERED: Bupivacaine HCl 0.25% 30 ML Injection ONE (14:42)
[2024-01-23] MEDS ORDERED: Ondansetron HCl 2 MG / ML 2ML Vial ONE (14:42)
[2024-01-23] MEDS ORDERED: Dexamethasone Sod Phos 10 MG/ML 1ML VIAL ONE (14:42)
[2024-01-23] MEDS ORDERED: Trospium Chloride 20 MG Tab PO SCH (16:30)
--- NOTE | 2024-01-23 19:43 | NUR ---
SHIFT SUMMARY UNFORTUNATLY WASN'T ABLE TO WORK w/ PT DUE TO LINGERING SPINAL. WASN'T ABLE TO LIFT NONSURGICAL UNTIL 183 & STILL COULDN'T LIFT SURGICAL LEG. TOLERATING DIET.
[2024-01-23] MEDS ORDERED: Docusate Sodium 100 MG Cap PO SCH (21:00)
[2024-01-23] MEDS ORDERED: Cholecalciferol 1000 Unit Tablet (=25MCG) PO SCH (21:00)
[2024-01-23] MEDS ORDERED: Zolpidem Tartrate 10 MG Tab PO SCH (21:00)
[2024-01-23] MEDS ORDERED: Magnesium Oxide 400 MG Tab PO SCH (21:00)
[2024-01-23] MEDS ORDERED: Metoprolol Tartrate 25 MG Tab PO SCH (21:00)
[2024-01-23] MEDS ORDERED: Atorvastatin 10 MG Tab PO SCH (21:00)
[2024-01-24] MEDS ORDERED: Tamsulosin HCl 0.4 MG Cap PO SCH ×2 (00:50→09:00)
[2024-01-24 03:35] VITALS: BP 118/65
--- NOTE | 2024-01-24 05:04 | NUR ---
NOC SUMMARY- PT PAIN HAS BEEN MANAGED WELL. PT HAS HAD NUMBNESS ON BOTTOM OF LEFT FOOT. PT HAS BEEN AMBULATORY W/ GB AND FWW. PT HAD NOT VOIDED AND WAS BLADDER SCANNED. PT TRIED TO VOID WITHOUT SUCCESS. PT STRIGHT CATH WITH SUCCESS. PT DRESSING IS C/D/I. CALL LIGHT IN REACH.
[2024-01-24 05:11] LABS: BASOPHILS ABSOLUTE AUTO 0.01 K/mm3 (0.00-0.23); BASOPHILS PERCENT AUTO 0 % (0-2); EOSINOPHILS PERCENT AUTO 0 % (0-6); Hematocrit 34.6 % (37.0-53.0); Hemoglobin 12.1 g/dL (13.5-17.5); IMMATURE GRAN ABSOLUTE AUTO 0.03 K/mm3 (0.00-0.10); IMMATURE GRAN PERCENT AUTO 0 % (0-1); LYMPHOCYTES ABSOLUTE AUTO 0.52 K/mm3 (0.84-5.20); LYMPHOCYTES PERCENT AUTO 6 % (21-46); MONOCYTES ABSOLUTE AUTO 0.51 K/mm3 (0.16-1.47); MONOCYTES PERCENT AUTO 5 % (4-13); Mean Corpuscular HGB 33.1 pg (26.0-34.0); Mean Corpuscular Volume 95 fL (80-100); Mean Platelet Volume 8.9 fL (9.1-12.4); NEUTROPHILS ABSOLUTE AUTO 8.42 K/mm3 (1.96-9.15); NEUTROPHILS PERCENT AUTO 89 % (41-73); Platelet Count 178 K/mm3 (150-400); RDW Coefficient Variation 11.8 % (11.7-14.2); RDW Standard Deviation 40.8 fL (35.1-46.3); Red Blood Cell Count 3.66 M/mm3 (4.30-5.90); White Blood Cell Count 9.49 K/mm3 (4.00-11.30)
[2024-01-24 05:48] LABS: Bun/Creatinine Ratio 15.9 (12.0-20.0); Calcium, Blood 9.3 mg/dL (8.5-10.1); Creatinine, Blood 0.82 mg/dL (0.60-1.20); Potassium, Blood 4.2 mmol/L (3.5-5.5)
[2024-01-24 07:11] VITALS: BP 119/71
[2024-01-24] MEDS ORDERED: Apixaban 5 MG Tab PO SCH (09:00)
[2024-01-24] MEDS ORDERED: AzaTHIOprine 50 MG Tab PO SCH (09:00)
[2024-01-24] MEDS ORDERED: Vitamin B Complex 1 EA Softgel PO SCH (09:00)
--- NOTE | 2024-01-24 10:14 | NUR ---
DISCHARGE SUMMARY PT CLEARED BY PHYSICAL THERAPY TO GO HOME. PT MINNIE PO INTAKE WELL AND IS VOIDING. ADEQUATE PAIN CONTROL WITH PO MEDS. DRSG TO L KNEE C/D/I. PT SENT HOME WITH EXTRA AQUACEL DRESSINGS. PT WILL F/U WITH [facility] IN 2 WEEKS. PT VERBALIZES UNDERSTANDING OF D/C INST AND QUESTIONS ANSWERED. PT ESCORTED TO LOBBY VIA WC.
[2024-02-09] MEDS ORDERED: Cyanocobalamin 1000 MCG/ML 1ML Vial IM SCH (09:00)
== END 2024-01-24 10:14 | disposition home or self-care (01) ==
LOC: ORSCMMR 09:37 → ORD 12:30 → ORSCMMR 12:30 → SURS 15:31 → ORSCMMR 01-24 10:14
PROVIDERS: Orthopaedic Surgery
PROC: 0SRD0JA Replacement of Left Knee Joint with Synthetic Substitute, Uncemented, Open Approach (ICD-10-PCS; principal; 2024-01-23 11:00)
DX: M17.12 Unilateral primary osteoarthritis, left knee (principal); I48.91 Unspecified atrial fibrillation; Z79.01 Long term (current) use of anticoagulants; E78.5 Hyperlipidemia, unspecified; Z87.891 Personal history of nicotine dependence; K21.9 Gastro-esophageal reflux disease without esophagitis; I10 Essential (primary) hypertension; Z85.038 Personal history of other malignant neoplasm of large intestine; R73.03 Prediabetes; Z79.899 Other long term (current) drug therapy
CPT/HCPCS: 36415; 51701; 73560-LT; 80048; 85025; 97110; 97116; 97162; A9270; C1776; J0171; J0690; J0735; J1100; J1171; J1885; J2405; J2704; J2795; J3010; J7120; J7500